=== PATIENT | female | born 1935 | race Caucasian/White ===

== ENCOUNTER → 2020-05-12 | Outpatient (CLI) | payer MEDICARE ==
[~2020-05-12] MED LIST: ADULT LOW DOSE81 MG PO; AMLODIPINE BESYL5 MG PO; ATELVIA35 MG PO; CENTRUM SILVER1 EAC1 PO; CITRACAL + D C1 EACH PO; MECLIZINE 25 MG25 M1 PO; MIACALCIN NS; NORCO 5-325 TA1 EACH PO; PRAVACHOL40 MG PO; PRILOSEC 20 MG20 MG PO; VITAMIN B-6200 M1 PO; VITAMINC500 PO
== END ==
LOC: M.CT 08:33
PROVIDERS: ATTEND Internal Medicine
DX: I65.23 Occlusion and stenosis of bilateral carotid arteries (principal); I10 Essential (primary) hypertension; G31.9 Degenerative disease of nervous system, unspecified

== ENCOUNTER 2020-07-01 20:41 | Inpatient (IN) | payer MEDICARE ==
[~2020-07-01] VITALS: Ht 162.6 cm; Wt 78.9 kg
--- NOTE | ~2020-07-01 | PROC ---
[address] [address] PROCEDURE REPORT Name: LUISA GTZ Room: [address] IN .R.#: [id number] Admission: 07/01/20 Attend Phys: Sally Douglas MD Discharge: 07/03/20 Date of : 37 Report #: [id number] THIS REPORT FOR: cc: Robin Macias MD, Meng MD ~ [facility],Medical Records Staff For GI report, please see the Provation report in Perceptive 7 content. By: [id number] Records Staff [facility] /DIVYA
[~2020-07-01 20:41] MED LIST changes: -AMLODIPINE BESYL5 MG PO; +NORVASC5 M1 PO
[2020-07-01 20:55] VITALS: BP 125/82
[2020-07-01] MEDS ORDERED: FISH OIL 1,0001 EAC9 PO (21:02)
[2020-07-01] MEDS ORDERED: [UNRECOGNIZED DRUG - OTHER] (21:03)
[2020-07-01 21:22] LABS: ABSOLUTE BASOPHILS 0.1 thou/uL (0.0-0.2); ABSOLUTE EOSINOPHILS 0.3 thou/uL (0.0-0.7); ABSOLUTE MONOCYTES 0.7 thou/uL (0.0-1.2); ABSOLUTE NEUTROPHILS 4.3 thou/uL (1.6-8.1); BASOPHILS 0.8 %; EOSINOPHILS 3.5 %; HEMATOCRIT 40.5 % (37.0-47.0); HEMOGLOBIN 13.7 gm/dL (12.0-15.0); LYMPHOCYTES 42.5 %; MCH 30.3 pg (26.0-34.0); MCHC 33.9 g/dL (28.0-37.0); MCV 89.5 fL (80.0-100.0); MONOCYTES 7.7 %; MPV 7.8 fl. (7.2-11.1); NUCLEATED RBCS 0 /100WBC; PLATELET COUNT* 253 thou/uL (150-400); POLYS 45.5 %; RBC 4.52 mil/uL (4.20-5.00); WBC 9.4 thou/uL (4.0-11.0)
[2020-07-01 21:26] LABS: CREATININE 0.9 mg/dL (0.6-1.3); POTASSIUM 3.9 mmol/L (3.5-5.1)
[2020-07-01 21:29] LABS: PROTIME 10.6 Seconds (9.20-11.50)
[2020-07-01 21:41] LABS: ALBUMIN 3.8 g/dL (3.4-5.0); MAGNESIUM 2.1 mg/dL (1.8-2.4); TOTAL BILIRUBIN 0.3 mg/dL (<0.1-1.0); TOTAL PROTEIN 7.5 g/dL (6.4-8.2)
[2020-07-01 23:14] LABS: URINE BILIRUBIN NEGATIVE (Negative); URINE BLOOD NEGATIVE (Negative); URINE CLARITY CLEAR; URINE COLOR YELLOW; URINE GLUCOSE-RANDOM NEGATIVE (Negative); URINE KETONES NEGATIVE (Negative); URINE LEUKOCYTES-REFLEX NEGATIVE (Negative); URINE NITRITE-REFLEX NEGATIVE (Negative); URINE PROTEIN NEGATIVE (Negative); URINE SPECIFIC GRAVITY >= 1.030 (1.005-1.030)
[2020-07-02] VITALS (9 sets, daily range): BP systolic 104–146; BP diastolic 46–73
--- NOTE | 2020-07-02 01:30 | NUR ---
RECEIVED REPORT FROM ER, PT TO ROOM AT 0045. AMBULATED WITH STEADY GAIT FROM CART TO BED. INSTRUCTED PT TO CALL FOR ASSIST BEFORE GETTING UP. TELEMETRY APPLIED SHOWING SR. NO ACTIVE BLEEDING AT THIS TIME. SEE ADMISSION ASSESSMENT AND HX.
[2020-07-02] MEDS ORDERED: OMEPRAZOLE 20 M20 M1 PO (02:51)
--- NOTE | 2020-07-02 05:50 | NUR ---
ASSISTED TO BR. PT HAVING LOOSE STOOL WITH MOD AMT BRIGHT RED BLOOD, NO CLOTS NOTED. NO C/O ABD PAIN OR NAUSEA. TELEMETRY CONT TO SHOW SR. HS GOALS OF REST AND SAFETY ACHIEVED. HOURLY ROUNDING OBSERVED.
--- NOTE | 2020-07-02 09:15 | NUR ---
ASSUMED CARE OF PT AT 0730. PT RESTING IN BED. NPO FOR GI THIS AM. GI HERE TO SEE PT. ORDERS RECEIVED FOR EGD AND COLON TOMORROW 07/03. PT ON CLEAR LIQUID DIET, NPO AFTER MIDNIGHT. PT A&0X4, [employer] [place], DENIES ANY PAIN OR SHORTNESS OF BREATH AT THIS TIME. 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 ON RA SAT UPPER 90'S. PT UP SBA TO BATHROOM. IVF. PT DENIES ANY BLOODY STOOLS THIS AM. PT GOAL FOR TODAY IS MONITOR LABS, MONITOR FOR BLOODY STOOLS AND PREP FOR EGD AND COLON IN AM. AM ASSESSMENT CHARTED. MEDICATIONS PER JUL. PT REPOSITIONS SELF. HOURLY ROUNDING OBSERVED. BED IN LOW POSITION. CALL LIGHT WITHIN REACH. WILL CONTINUE PLAN OF CARE.
--- NOTE | 2020-07-02 09:59 | EKG ---
[place] [address] ELECTROCARDIOGRAM REPORT Name: LUISA GTZ Room: [address] ADM IN M.R.#: [id number] Admission: 07/01/20 Attend Phys: Sally Douglas, Discharge: Date of : 37 Date of Service: 07/01/202105 Report #: [id number] THIS REPORT FOR: //name// [facility] ED Test Date: 2020-07-01 Test Time: 21:06:08 Pat Name: LUISA GTZ Department: Room: [facility] Gender: F Crossing Guard: ABIEL : [id number] Requested By: Lanny Lucero Order Number: [id number] MD: Romulo Darby Measurements Intervals [place] Rate: 88 P: 55 [place]: 126 QRS: 10 QRSD: 85 T: 52 QT: 364 QTc: 441 Interpretive Statements Sinus rhythm Abnormal R-wave progression, early transition Left ventricular hypertrophy Baseline wander in lead(s) III Compared to ECG 08/17/2010 18:41:44 Left ventricular hypertrophy now present Electronically Signed On 07-02-2020 9:59:30 REGIONAL SALES DIRECTOR by Romulo Darby [email or web address] <ELECTRONICALLY SIGNED> By: Romulo Darby MD, FACC 07/02/20 0959 05 05 Romulo Darby MD, FAC /EPI
[2020-07-02 10:13] LABS: CALCIUM 8.3 mg/dL (8.5-10.1); CREATININE 0.7 mg/dL (0.6-1.3); POTASSIUM 3.8 mmol/L (3.5-5.1)
[2020-07-02 10:16] LABS: PHOSPHORUS* 3.2 mg/dL (2.5-4.9)
--- NOTE | 2020-07-02 17:36 | NUR ---
NO ACUTE CHANGES THROUGHOUT SHIFT. REFER TO CHARTING. PT CURRENTLY DOING PREP FOR COLONOSCOPY TOMORROW 07/03-HAVING FREQUENT STOOLS. CONSENTS SIGNED AND PLACED IN FRONT OF CHART. PT ON CLEAR LIQUID DIETS AND NPO AFTER MIDNIGHT. MEDS PER MAR. PT REPOSITIONS SELF. HOURLY ROUNDING OBSERVED. BED IN LOW POSITION. CALL LIGHT WITHIN REACH. WILL CONTINUE PLAN OF CARE.
[2020-07-03 04:23] VITALS: BP 163/64
[2020-07-03 04:47] LABS: HEMATOCRIT 26.9 % (37.0-47.0); HEMOGLOBIN 9.3 gm/dL (12.0-15.0); MCHC 34.6 g/dL (28.0-37.0); MCV 89.6 fL (80.0-100.0); MPV 7.8 fl. (7.2-11.1); WBC 5.1 thou/uL (4.0-11.0)
[2020-07-03 05:34] LABS: ALBUMIN 2.9 g/dL (3.4-5.0); CREATININE 0.6 mg/dL (0.6-1.3); POTASSIUM 3.3 mmol/L (3.5-5.1); TOTAL BILIRUBIN 0.2 mg/dL (<0.1-1.0); TOTAL PROTEIN 5.7 g/dL (6.4-8.2)
[2020-07-03 08:10] VITALS: BP 148/52
[2020-07-03 14:06] VITALS: BP 148/52
--- NOTE | 2020-07-03 14:32 | NUR ---
ASSUMED CARE OF PT AT 0730. PT HAD EGD/COLON TODAY-REFER TO RESULTS. OK FOR DISCHARGE IF TOLERATES DIET. PT TOLERATED HEART HEALTHY LUNCH WITHOUT DIFFICULTIES. POTASSIUM REPLACED PER ELECTROLYTE PROTOCOL-RE DRAW 3.7. DISCHARGE ORDERS RECEIVED. DISCHARGE INSTRUCTIONS AND FOLLOW UP APPTS GIVEN TO PT. PT COMMUNICATES UNDERSTANDING OF DISCHARGE TEACHING. IV AND STEAM SHOVELMAN REMOVED. PT DISCHARGED WITH ALL BELONGINGS AND PAPERWORK VIA WHEELCHAIR WITH NURSING STAFF TO BROTHER OWN PERSONAL VEHICLE.
== END 2020-07-03 14:39 | disposition home or self-care (01) | DRG 378 ==
LOC: M.ERS 20:41 → M.2W 23:03 → M.TBA-ER 23:03 → M.2W 07-02 00:50
PROVIDERS: Emergency Medicine; Internal Medicine; ADMIT Internal Medicine; ATTEND Internal Medicine
PROC: 0DJD8ZZ Inspection of Lower Intestinal Tract, Via Natural or Artificial Opening Endoscopic (ICD-10-PCS; principal; 2020-07-03)
PROC: 0DJ08ZZ Inspection of Upper Intestinal Tract, Via Natural or Artificial Opening Endoscopic (ICD-10-PCS; principal; 2020-07-03)
DX: K57.31 Diverticulosis of large intestine without perforation or abscess with bleeding (principal); R71.0 Precipitous drop in hematocrit; K62.5 Hemorrhage of anus and rectum; K21.9 Gastro-esophageal reflux disease without esophagitis; I10 Essential (primary) hypertension; E87.6 Hypokalemia; K59.00 Constipation, unspecified; I95.9 Hypotension, unspecified; Z20.822 Contact with and (suspected) exposure to COVID-19; Z79.899 Other long term (current) drug therapy; Z79.82 Long term (current) use of aspirin